=== PATIENT | female | born 1945 | race Caucasian/White ===

== ENCOUNTER → 2024-08-24 08:10 | Outpatient (BNVA) | payer MEDICARE, OTHER, SELFPAY | PROVIDERS: PCP Surgery; Referring Provider Orthopaedic Surgery; Visit Provider Specialist | DX: G70.01 Myasthenia gravis with (acute) exacerbation (principal) | CPT/HCPCS: 36415; 83516; 83519; 99204 ==

== ENCOUNTER → 2024-12-01 13:43 | Outpatient (BNVA) | payer MEDICARE, OTHER, SELFPAY | PROVIDERS: Referring Provider Orthopaedic Surgery; Visit Provider Specialist | DX: G70.01 Myasthenia gravis with (acute) exacerbation (principal); M54.2 Cervicalgia | CPT/HCPCS: 99214 ==